=== PATIENT | male | born 2000 | race Asian ===

== ENCOUNTER 2018-06-14 09:04 | Emergency (ER) | payer OTHER ==
[2018-06-14] MEDS ORDERED: IBUPROFEN 600 MG TAB PO ONE (10:25)
--- NOTE | 2018-06-14 10:25 | EDPHY ---
General Time Seen by Provider: 06/14/18 10:24 Narrative: CLINICAL IMPRESSION: Runny nose, congestion, cough, sore throat ASSESSMENT/PLAN: Patient is a 18-year-old male with no significant medical history who presents to the emergency department with runny nose, cough, congestion, sore throat and chills. Patient is afebrile, in no acute distress and nontoxic appearing. His vital signs were reviewed and no findings to suggest sepsis or serious bacterial illness. Laboratory studies were obtained including influenza swab which was positive for influenza A. His lungs were clear to auscultation bilaterally, no evidence of hypoxia or respiratory distress. History and physical examination is most consistent with influenza a. There is no evidence of significant sinusitis, meningitis, pneumonia or serious bacterial illness. He was given his 1st dose of Tamiflu and will continue for the next 5 days. He does not have a primary care provider, I have given him a referral to establish care. On re-examination prior to discharge this patient is stable and well-appearing. Strict return precautions discussed- he will return for significantly worsening symptoms, high fevers, neck stiffness, difficulty swallowing, chest pain, shortness of breath, signs of dehydration or for any other concerning symptom. The patient verbalizes understanding and he is in agreement with this plan. DIFFERENTIAL DX: Differential diagnosis includes but not limited to and in no particular order influenza, pharyngitis, sinusitis, meningitis, pneumonia, sepsis ED COURSE: 1105: Case discussed with Dr. Painting CHIEF COMPLAINT: Runny nose, congestion, cough, sore throat and chills HPI: Patient is a 18-year-old male with no significant medical history who presents to the emergency department with runny nose, congestion, sore throat, cough and chills. Patient reports yesterday he started to have a runny nose and congestion, this has progressively worsened and today he is now experiencing mild headache and cough. He is generally feeling unwell. He denies any recorded fevers however has felt chilled. Denies any neck stiffness, difficulty swallowing, hoarseness, change in voice. His cough is nonproductive. He has had no nausea, vomiting or abdominal pain, his appetite is normal. He denies any rash. No known sick contacts. PAST MEDICAL HISTORY: Denies Family History: Noncontributory Social History: Denies smoking, denies alcohol use and denies illicit drug use. ROS: A full 10 point review of systems was negative except for those mentioned in HPI. PHYSICAL EXAM: General Appearance: Well-developed, tired appearing however not toxic- appearing. HEENT: TMs are clear bilaterally no perforation or FB, no injection, no evidence of serous or mucopurulent otitis. Oropharynx clear is no erythema or exudates, no tonsillar hypertrophy or asymmetry. Dentition without abnormality. Eyes: PERRLA, no acute vision change, nystagmus, swelling, discharge, pain or photosensitivity. Conjunctiva pink, no pallor or injection. Neck: Supple, nontender, no lymphadenopathy, no midline pain, FROM, no meningismus. Respiratory: There are no retractions, lungs are clear to auscultation. Cardiac: Regular rate and rhythm, no murmurs or gallops. Gastrointestinal: Abdomen is soft, nontender, bowel sounds normal, no masses/ hernia, no rigidity, guarding or focal peritoneal findings. Skin: Warm, dry, no rashes, no nodules on palpation. MEDICAL DECISION MAKING: Patient was seen independently. Secondary supervising physician at time of evaluation was Dr. Painting, he did not evaluate this patient. Diagnosis: Influenza a. New, requires workup Summary: See Assessment and Plan for summary of ED visit Clinical lab tests: ordered / reviewed. Independent visualization of images, tracing, or specimens: No. Decision to obtain medical records or history from someone other than the patient: No Review / Summarize previous medical records: No Discussed patient with another provider: Yes, Dr. Painting Patient Progress: Stable, discharge. - History Smoking Status: Current every day smoker - Objective Vital Signs: Initial Vital Signs Temperature (C) 37 C 06/14/18 09:12 Heart Rate 94 06/14/18 09:12 Respiratory Rate 16 06/14/18 09:12 O2 Sat (%) 96 06/14/18 09:12 O2 Delivery Mode Room Air Allergies/Adverse Reactions: No Known Allergies Allergy (Unverified 06/14/18 09:16) Home Medications: Medication Instructions Recorded Oseltamivir Phosphate [Tamiflu 75 75 mg PO BID 5 Days cap 06/14/18 mg (*)] Medications Given: Discontinued Medications Ibuprofen (Motrin) 600 mg PO EDNOW ONE Stop: 06/14/18 10:26 Last Admin: 06/14/18 10:29 Dose: 600 mg Oseltamivir Phosphate (Tamiflu) 75 mg PO EDNOW ONE Stop: 06/14/18 11:56 Last Admin: 06/14/18 12:16 Dose: 75 mg Departure - Departure Disposition: Home, Routine, Self-Care Clinical Impression: Influenza A Condition: Good Instructions: Upper Respiratory Infection (ED) Additional Instructions: DISCHARGE INSTRUCTIONS FROM YOUR DOCTOR Thank you for visiting our emergency department today. Please keep in mind that discharge from the emergency department does not mean that there is nothing wrong - it simply means that we have not identified an emergency condition that requires further evaluation or treatment in the hospital. You should always plan to follow up with primary care for re-evaluation of your condition in the next 2-3 days. Rest, push non-diuretic, non-caffeinated fluids, consume a healthy diet, all to help support your immune system fight infection. Consider running a coolmist humidifier in the bedroom. Consider warm salt water gargles for sore throat. Consider over the counter saline nasal washes ie: Neilmed sinus rinse, [place] or [place]. Consider over the counter Mucinex for congestion and/or cough as directed. Ibuprofen as directed as needed for fever and/or pain. Take with food. Stop if it upsets your stomach. Do not exceed 2400 mg in 24 hours. Tylenol as directed as needed for fever and/or pain. Do not exceed 4000 mg in 24 hours. As discussed, in the setting of a viral illness, you may develop a secondary bacterial infection, requiring an antibiotic. Watch for new or changing symptoms ie: new ear pain or drainage, increasing cough, shortness of breath, high fever, or any other concerning symptoms. Schedule a follow-up appointment with your primary care physician in the next 2- 3 days for re-evaluation, sooner for any new concerns. Return for high fever, shaking chills, severe headache, facial redness or swelling, drainage from your ears, difficulty breathing or swallowing, throat tightness, drooling, change in voice, inability to open your mouth normally, severe neck pain, neck stiffness, shortness of breath, wheezing, noisy breathing , coughing up blood, chest pain, vomiting, diarrhea, bloody stools, decreased urine output or other concerns for dehydration, bloody urine, rash, dizziness, weakness, fainting, or for any other new, worsening or worrisome symptoms. People present with illnesses and injuries in different ways, and it is always possible that we have missed something. You may always return for re-evaluation if symptoms worsen or if they are not improving or if you develop new/different symptoms. Again, thank you for choosing our emergency department. We hope that you feel better. Referrals: NONE *PRIMARY CARE P,. [Primary Care Provider] - As per Instructions Clarice Flores MD [Medical Doctor] - As per Instructions (Schedule an appointment to establish care with a primary care provider) Stand Alone Forms: School Excuse Prescriptions: Oseltamivir Phosphate [Tamiflu 75 mg (*)] 75 mg PO BID 5 Days cap
[2018-06-14] MEDS ORDERED: OSELTAMIVIR PHOSPHATE 75 MG CAP PO ONE (11:55)
[2018-06-14 12:22] VITALS: BP 133/76
== END 2018-06-14 12:22 | disposition home or self-care (01) ==
DX: J10.1 Influenza due to other identified influenza virus with other respiratory manifestations (principal)

== ENCOUNTER 2018-09-26 14:46 | Emergency (ER) | payer OTHER ==
[2018-09-26 16:24] VITALS: BP 136/93
--- NOTE | 2018-09-26 16:31 | EDPHY ---
H & P Time Seen by Provider: 09/26/18 14:58 HPI/ROS: HPI Sore throat. Nasal congestion. 18-year-old male by private vehicle with a friend of his. This patient presents stating that 4 days ago he developed a sore throat followed by swollen glands and nasal congestion with clear rhinorrhea. He reports that his symptoms have persisted. He has also felt a generalized stuffiness in his head. Recent travel to [place]. He reports subjective fevers. ROS: Constitutional: As above, no chills. No weakness. Eyes: No discharge. No changes in vision. ENT: As above. Respiratory: No cough. No shortness of breath. Cardiac: No chest pain, no palpitations. Gastrointestinal: No abdominal pain, no vomiting, no diarrhea. Genitourinary: No hematuria. No dysuria or increased frequency with urination. Musculoskeletal: No back pain. No neck pain. No myalgias or arthralgias. Skin: No rashes. Neurological: No headache. No focal weakness or altered sensation. Past medical history: No significant past medical history. Social history: [employer]. Here with his friend. Nonsmoker. No alcohol. Physical Exam: General Appearance: Alert, no distress. This patient is responding to questions appropriately and in full sentences. This patient appears well- hydrated and well-nourished. Eyes: Pupils equal and round no pallor or injection. No lid edema, erythema or injection. ENT, Mouth: Mucous membranes are moist. Mild pharyngeal erythema with some mild right tonsillar edema. No significant asymmetry suggestive of abscess. No no exudates appreciated. Upper airway sounds are clear on auscultation of his neck. No voice changes. Mild anterior cervical and submandibular lymphadenopathy. No elevation of the tongue. Respiratory: There are no retractions, lungs are clear to auscultation with good air movement bilaterally. Cardiovascular: Regular rate and rhythm. No murmur. Neurological: Motor sensory function is grossly intact. Cranial nerves are normal. Gait is normal. Skin: Warm and dry, no rashes. Musculoskeletal: Neck is supple and nontender. No pain on flexion of his neck. Extremities are symmetrical. All joints range without pain or impingement. Psychiatric: No agitation. No depression. Database: EKG: Imaging: Procedures: Emergency department course: Triage vital signs reviewed and are normal. Rapid strep and influenza testing were both negative. Patient does not appear toxic. Results of his diagnostic testing discussed with him. Diagnosis of viral upper respiratory infection with viral pharyngitis discussed. He feels comfortable going home with his friend and I feel he is safe for discharge. Follow-up and return to emergency department precautions reviewed with him. All of his questions were answered. He was discharged from the emergency department in good condition with his friend. Differential Diagnosis: The differential diagnosis on this patient includes but is not limited to viral upper respiratory infection, viral pharyngitis. Streptococcal pharyngitis, peritonsillar abscess, retropharyngeal abscess, tracheitis, epiglottitis, other serious bacterial infection unlikely. This represents a partial list of diagnoses considered. These considerations are based on history, physical exam , past history, reassessment and diagnostic testing. Smoking Status: Current every day smoker Constitutional: Initial Vital Signs Temperature (C) 36.9 C 09/26/18 14:49 Heart Rate 88 09/26/18 14:49 Respiratory Rate 16 09/26/18 14:49 Blood Pressure 118/70 09/26/18 14:49 O2 Sat (%) 96 09/26/18 14:49 O2 Delivery Mode Room Air Allergies/Adverse Reactions: No Known Allergies Allergy (Unverified 06/14/18 09:16) Home Medications: Medication Instructions Recorded NK [No Known Home Meds] 09/26/18 Medical Decision Making - Data Points Laboratory Results: 09/26/18 09/26/18 09/26/18 Unknown 15:05 15:04 Nasal Influenza A PCR NEGATIVE FOR FLU A (NEGATIVE) Nasal Influenza B PCR NEGATIVE FOR FLU B (NEGATIVE) Group A Strep Screen NEGATIVE Cancelled (NEGATIVE) Group A Strep DNA Pending Departure - Departure Disposition: Home, Routine, Self-Care Clinical Impression: Upper respiratory infection, Pharyngitis Condition: Good Instructions: Pharyngitis (ED), Upper Respiratory Infection (ED) Additional Instructions: Read and follow provided instructions. Follow-up with your primary care physician on Thursday or Thursday of this week for re-evaluation as needed. Ibuprofen dosin mg every 6 hours with meals for the next 3 days only. Take only as needed sore throat pain, muscle aches or joint aches as well as treatment of fever. Return to the emergency department for worsening symptoms, worsening sore throat , difficulty swallowing, difficulty breathing, neck pain, high fever or other serious concerns. Referrals: NONE *PRIMARY CARE P,. [Primary Care Provider] - As per Instructions
== END 2018-09-26 16:36 | disposition home or self-care (01) ==
DX: J06.9 Acute upper respiratory infection, unspecified (principal); F17.200 Nicotine dependence, unspecified, uncomplicated